=== PATIENT | female | born 1965 | race African-American/Black ===

== ENCOUNTER 2017-07-17 16:35 | Emergency (ER) | payer BC, OTHER ==
[~2017-07-17] VITALS: Ht 177.8 cm; Wt 192.8 kg
--- NOTE | ~2017-07-17 | EKG ---
[place] [address] [employer] [email or web address] [email or web address] [address] ELECTROCARDIOGRAM REPORT Name: DEE DEE TURNER Room #: [facility] [place]LEGiovana#: [id number] Admission: 07/17/17 Attend Phys: Discharge: 07/17/17 Date of : 67 Report #: [id number] THIS REPORT FOR: //name// [facility] ED Test Date: 2017-07-17 Test Time: 17:14:53 Pat Name: DEE DEE TURNER Department: Room: Gender: F [employer] Supervisor: [id number] : 1965 Requested By: Italia Palumbo Order Number: [id number] MD: Michael Pierce Measurements Intervals [place] Rate: 80 P: [place]: QRS: -17 QRSD: 127 T: -1 QT: 412 QTc: 476 Interpretive Statements Sinus rhythm Nonspecific T wave abnormality Compared to ECG 11/10/2011 22:24:42 No significant change was found Electronically Signed On 07-18-2017 8:22:38 CDT by Michael Pierce [email or web address] <ELECTRONICALLY SIGNED> By: Michael Pierce MD, [facility] 07/18/17821 1714 13 Michael Pierce MD, FACC /EPI
[~2017-07-17 16:35] MED LIST: ALTACE5 M1 PO; BYSTOLIC 5 MG5 M1 PO; BYSTOLIC10 MG PO; CATAPRES-TTS 20.2 MG ID; CHLORTHALIDONE25 MG PO; CLONIDINE HCL0.2 M2 PO; COZAAR100 MG PO; HYDROCHLOROTHIA25 M1 PO; K-DUR 20 MEQ T20 MEQ PO; LISINOPRIL40 MG PO; NAPROSYN500 MG PO; PANTOPRAZOLE SO40 MG PO; PERCOCET 5-3251 EACH PO; PROPRANOLOL 8080 M1; PROZAC10 MG PO
[2017-07-17] MEDS ORDERED: NORVASC5 MG PO (16:56)
[2017-07-17 17:39] LABS: ABSOLUTE NEUTROPHILS 7.2 thou/uL (1.4-8.2); BASOPHILS 0.5 % (0.0-2.0); EOSINOPHILS 1.1 % (0.0-3.0); HEMATOCRIT 39.6 % (37.0-47.0); HEMOGLOBIN 13.2 gm/dL (12.0-15.0); LYMPHOCYTES 22.1 % (24.0-44.0); MANUAL DIFF NO; MCH 29.5 pg (26.0-34.0); MCHC 33.3 g/dL (28.0-37.0); MCV 88.7 fL (80.0-100.0); MONOCYTES 6.6 % (1.0-8.0); PLATELET COUNT 334 thou/uL (150-400); POLYS 69.7 % (36.0-66.0); RBC 4.46 mil/uL (4.20-5.00); RDW 15.2 % (10.5-14.5); WBC 10.3 thou/uL (4.0-11.0)
[2017-07-17 17:46] LABS: ANION GAP 10 mmol/L (7-16); BUN 12 mg/dL (7-18); CALCIUM 9.8 mg/dL (8.5-10.1); CHLORIDE 98 mmol/L (98-107); CO2 30 mmol/L (21-32); GLUCOSE 199 mg/dL (74-106); POTASSIUM 3.2 mmol/L (3.5-5.1); SODIUM 138 mmol/L (136-145)
[2017-07-17 17:54] LABS: TROPONIN-I < 0.04 ng/mL (<0.04-0.07)
[2017-07-17 18:07] VITALS: BP 140/68
== END 2017-07-17 18:14 | disposition home or self-care (01) ==
LOC: ER 16:35
PROVIDERS: Emergency Medicine
DX: I10 Essential (primary) hypertension (principal); E87.6 Hypokalemia; R51 Headache; Z98.890 Other specified postprocedural states; F10.99 Alcohol use, unspecified with unspecified alcohol-induced disorder